=== PATIENT | male | born 1960 | race Caucasian/White ===

== ENCOUNTER 2023-03-03 12:33 | Observation (INO) | payer SELFPAY ==
[2023-03-03] VITALS (16 sets, daily range): BP systolic 110–166; BP diastolic 76–111; PULSE 78–106; RESP 13–22; TEMP 36.4; O2SAT 94–100
--- NOTE | ~2023-03-03 | CT_ITS ---
EXAMINATION: CT brain wo con DATE: 03/03/2023 13:28 INDICATION: Dizziness. Nausea and vomiting. TECHNIQUE: Computed tomography (CT) of the head was performed without intravenous contrast. The mA wa s adjusted according to patient size. Iterative reconstruction technique was employed. Exam dose: 83 2.33 mGy-cm total exam DLP. COMPARISON: 07/30/2018 CT brain FINDINGS: Vertebral, basilar and carotid siphon internal carotid artery calcifications. No intracranial mass lesion or hemorrhage or cerebrovascular accident, midline shift or mass effect i s detected. No subdural or epidural hematoma. Normal ventricular size. No orbital abnormality. No skull fracture or bone destruction. Extensive opacification of right mastoid air cells. There is limited development of the left or right mastoid air cells. The left mastoid air cells are patent. There is prominent mucoperiosteal thickening of the maxillary sinuses, prominent patchy soft tissue t hickening of the ethmoid air cells. IMPRESSION: Cerebral atherosclerosis No acute intracranial finding Paranasal sinus disease Reviewed, dictated and finalized at [facility]. Reviewed, dictated and finalized at location [facility]. 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
--- NOTE | ~2023-03-03 | XR_ITS ---
EXAMINATION: XR chest 2V DATE: 03/03/2023 15:16 INDICATION: Pneumonitis. TECHNIQUE: Frontal and lateral views of the chest were obtained. COMPARISON: Chest 2 views 09/19/2018, chest CT 07/30/2018 FINDINGS: There is no pneumonia, pleural effusion, or pneumothorax. Cardiomegaly is noted. IMPRESSION: 1. Cardiomegaly. Reviewed, dictated and finalized at location [facility]. [facility] IMPRESSION: 1. Cardiomegaly.
[2023-03-03 12:48] LABS: Basophils Absolute Auto 0.1 K/mm3 (0.0-0.1); Basophils Percent Auto 0.4 % (0.2-1.2); Eosinophils Absolute Auto 0.2 K/mm3 (0-0.3); Eosinophils Percent Auto 1.4 % (0-4.4); Hematocrit 39.5 % (42.0-52.0); Hemoglobin 13.2 g/dL (14.0-18.0); Immature Granulocyte Percent A 0.6 % (0-0.5); Lymphocytes Absolute Auto 5.51 K/mm3 (0.9-3.2); Lymphocytes Percent Auto 34.3 % (18.3-44.2); Mean Corpuscular HGB Conc 33.4 g/dl (32-36); Mean Corpuscular Hemoglobin 29.9 pg (26-34); Mean Corpuscular Volume 89.4 fl (80-100); Mean Platelet Volume 9.6 fl (7.4-10.4); Monocytes Absolute Auto 1.3 K/mm3 (0.1-0.6); Monocytes Percent Auto 8.1 % (2.6-8.5); Neutrophils Absolute Auto 8.9 K/mm3 (1.3-6.7); Neutrophils Percent Auto 55.2 % (45.5-73.1); Platelet Count Result 446 k/mm3 (150-375); Red Blood Count 4.42 M/mm3 (4.6-6.20); Red Cell Distribution Width 12.4 % (11.5-14.5); White Blood Count 16.1 K/mm3 (4.5-10.0)
--- NOTE | 2023-03-03 12:59 | ED.GENADULT ---
HPI - General Adult General Chief complaint: Nausea/Vomiting/Diarrhea <Fang Magana June, LOOP TACKER - Last Filed: 03/05/23 20:15> Stated complaint: vomiting <Fang Magana June, LOOP TACKER - Last Filed: 03/05/23 20:15> Time Seen by Provider: 03/03/23 14:23 <Fang Magana June, LOOP TACKER - Last Filed: 03/05/23 20:15> Source: patient and family (daughters) <Minal Berman MD - Last Filed: 03/04/23 02:58> History of Present Illness HPI narrative: Emanuel Granado is a 62 y/o male with PMHx of HTN has been off of his blood pressure medications for about a week. He states he might of felt a little light headed yesterday/ woke up this morning feeling ok and then around 1120 he started to feel nauseated/ diaphoretic / he states vomited up clear fluids/ He states he feels dizzy / off balance / nauseated Denies chest pain / shortness of breath/ denies abdominal pain/ Last BM was today and normal Denies numbness /tingling to his arms/ legs/ <Fang Magana June, LOOP TACKER - Last Filed: 03/05/23 20:15> Emanuel Granado is a 62 y/o male with PMHx of HTN has been off of his blood pressure medications (labetalol 10mg and HCTZ) for about a week. He states he might of felt a little light headed yesterday/ woke up this morning feeling ok and then around 1120 he started to feel nauseated/ diaphoretic / he states vomited up clear fluids/ He states he feels dizzy / off balance / nauseated Denies chest pain / shortness of breath/ denies abdominal pain/ Last BM was today and normal . No diarrhea. Denies numbness /tingling to his arms/ legs/ Emesis non bloody, 5-6 episodes over 1-1.5 hours. Daughter states he was flushed and clammy. He states he as bit by a spider 1 week ago. He didn't see a spider but noticed a rash that burned and itched. No known Hx Afib. Does not follow with a healthcare insurance sales agent, not on anticoagulation. Denies palpitations. He later complains of an earache on the right. Denies sick contact. Previously had a PCP through [facility] but this closed in July. <Minal Breman MD - Last Filed: 03/04/23 02:58> Related Data Home medications: Home Medications Medication Instructions Recorded Confirmed hydrochlorothiazide 25 mg tablet 25 mg PO DAILY 03/03/23 03/03/23 <Fang Magana June, - Last Filed: 03/05/23 20:15> Allergies/adverse reactions: Allergies Allergy/AdvReac Type Severity Reaction Status Date / Time No Known Allergies Allergy Verified 03/03/23 13:41 <Fang Magana June, - Last Filed: 03/05/23 20:15> Review of Systems Review of Systems: All systems reviewed & are unremarkable except as noted in HPI and below <Fang Magana June, - Last Filed: 03/05/23 20:15> PMFSH Past Medical History Medical History: Medical History Hypertension <Fang Magana June, - Last Filed: 03/05/23 20:15> Surgical History Surgical History: Surgical History No history of major surgery within 1 month <Fang Magana June, - Last Filed: 03/05/23 20:15> Family History Family History: Family History Daughter Asthma Mother Diabetes mellitus Hypertension Father Multiple sclerosis <Fang Magana June, - Last Filed: 03/05/23 20:15> Social History Social History: Social History Social History: Has 5 children (age ranges teenager to mid 30 yo). Surrogate medical decision maker: Shweta Granado, daughter. Code status: Full code. 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
--- NOTE | 2023-03-03 13:08 | ECG_ITS ---
Measurements Intervals [place] Rate: 88 P: NC: 0 QRS: 66 QRSD: 108 T: 3 QT: 391 QTc: 475 Interpretive Statements ATRIAL FIBRILLATION NONSPECIFIC ST-T WAVE ABNORMALITY- INFERIOR LEADS ABNORMAL ECG NO PREVIOUS ECG AVAILABLE FOR COMPARISON Electronically Signed On 03-03-2023 14:59:23 LAWN SERVICE MANAGER by Yony Mack D.O.
[2023-03-03 13:12] LABS: Anisocytosis 1+ (NORMAL); Atypical Lymphocytes Present; Platelet Estimate Adequate (Adequate); Schistocytes None Seen (NORMAL)
[2023-03-03 13:53] LABS: Alanine Aminotransferase 39 U/L (6-50); Albumin Level 4.2 g/dL (3.5-5.1); Alkaline Phosphatase 91 U/L (38-126); Anion Gap 9 mmol/L (8-16); Aspartate Amino Transferase 31 U/L (17-59); Bilirubin,Total 0.8 mg/dL (0.2-1.3); Blood Urea Nitrogen 17 mg/dL (9-20); Calcium 9.1 mg/dL (8.4-10.2); Carbon Dioxide 25 mmol/L (22-30); Chloride 100 mmol/L (98-107); Estimated CRCL calculation 85 ml/min; Estimated Glomerular Filt Rate > 60; Glucose 187 mg/dL (65-110); Lipase 169 U/L (23-300); Potassium 3.8 mmol/L (3.4-5.0); Sodium 134 mmol/L (137-145)
[2023-03-03] MEDS: ONDANSETRON INJ 4 MG/2 ML VIAL IV PUSH (14:06)
[2023-03-03] MEDS: FAMOTIDINE 20 MG/2 ML VIAL IV PUSH (14:11)
[2023-03-03 14:13] LABS: Lactic Acid Reflex 1.7 mmol/L (0.7-2.0)
[2023-03-03 14:30] LABS: Troponin I < 0.012 ng/mL (0.000-0.034)
--- NOTE | 2023-03-03 14:48 | ECG_ITS ---
Measurements Intervals [place] Rate: 77 P: DE: 0 QRS: 73 QRSD: 95 T: 23 QT: 397 QTc: 451 Interpretive Statements ATRIAL FIBRILLATION VENTRICULAR PREMATURE COMPLEX BORDERLINE ST-T WAVE ABNORMALITY- INFERIOR LEADS ABNORMAL ECG COMPARED TO ECG 03/03/2023 13:51:28 NO SIGNIFICANT CHANGES Electronically Signed On 03-03-2023 15:15:00 DEICER ELEMENT WINDER MACHINE by Yony Mack D.O.
[2023-03-03] MEDS: SODIUM CHLORIDE 0.9% IV 1,000 ML 999 ML IV CONT (15:05)
[2023-03-03 15:42] LABS: Appearance Urine Clear (Clear); Bilirubin Urine Negative (Negative); Blood Urine Negative (Negative); Color Urine Yellow (Yellow); Glucose Urine UA Negative (Negative); Ketones Urine 1+ mg/dL (Negative); Leukocyte Esterase Ur Negative LEU/UL (Negative); Nitrate Urine Negative (Negative); Protein Urine Negative (Negative); Specific Grav Ur 1.023 (1.001-1.035); Urobilinogen Urine 0.2 mg/dL (<2.0)
[2023-03-03 15:50] LABS: Influenza A QL RT-PCR Negative (Negative); Influenza B QL RT-PCR Negative (Negative); RSV RNA, RT-PCR Negative (Negative); SARS-CoV-2 RNA PCR Negative (Negative)
[2023-03-03 16:03] LABS: Add Urine Microscopic? NO
[2023-03-03] MEDS: PROCHLORPERAZINE EDISYLATE 10 MG/2 ML VIAL IV PUSH (17:15)
[2023-03-03] MEDS: LACTATED RINGERS 1,000 ML 125 ML IV CONT (18:16)
--- NOTE | 2023-03-03 18:50 | PC.NURSE ---
Pt daughter Shweta requests to be called with updates regarding pt. Pt gave verbal permission to share information with Shweta. Shweta White
--- NOTE | 2023-03-03 19:16 | PC.NURSE ---
Report given to Keyla JONES, all questions answered
--- NOTE | 2023-03-03 21:31 | ADMGEN ---
This patient, Emanuel Granado, was admitted to Medical Room 347-. Patient/family oriented to hospital policies and general routines including ID bracelet, bed and alarms, visiting hours, pain management, procedures, bathroom and other care routines, personal items, smoking policy, room service/diet, and visiting hours. Information on how to activate the Rapid Response Team has been discussed. Patient/Family are encouraged to report perceived risks to care and to ask questions if they do not understand what they are told or what they should do.
--- NOTE | 2023-03-03 22:26 | PM.IMHP ---
H&P: HPI History of Present Illness Date/Time: 03/03/23 22:30 Chief Complaint: Nausea, vomiting, rash. Narrative: This is a very pleasant 62-year-old male with hypertension who presented to the emergency department via private vehicle for evaluation of nausea, vomiting, and a rash. The patient provides the following history. He was in his usual state of health when he went to work this morning and around lunchtime he started to feel lightheaded, nauseated, and weak. He had several episodes of emesis thereafter and he was brought in for evaluation as he just did not look well. He had not yet eaten lunch and majority of the emesis was water. He felt better thereafter and has no current complaints. On arrival to the ED he was afebrile blood pressures have been running in the 150s to 160s systolic. Labs were significant for WBC count of 16.1, hemoglobin 13.2 sodium 134, glucose 187, lactic acid 1.7, troponin than 0.012, TSH 1.100. UA was unremarkable aside from 1+ ketones. He tested negative for influenza, RSV, and COVID. Chest x-ray showed cardiomegaly. EKG showed atrial fibrillation with a rate of 88. This is a new diagnosis for him and has no symptoms of palpitations or sensations of racing heart. He also denies exertional chest pain, shortness a breath, lower extremity edema, orthopnea, and paroxysmal nocturnal dyspnea. No history of cardiac or thyroid disease. He denies significant caffeine and alcohol use. No concerns for sleep apnea. Of note, about a week ago he developed what he got what he thought was a spider bite on the left lower back. He then developed several other of lesions in the same area which seemed to follow a dermatome. He has a history of chickenpox though it has never had shingles. The area is now crusted over and is not draining. He has no significant pain in the area. At the time my evaluation he has no complaints. Review of Systems Review of Systems: Twelve systems were reviewed and are negative except for as per HPI. COUNTS INCLUDE 234 BEDS AT THE [facility] Past Medical History Medical History (Updated 03/03/23 @ 23:10 by Kelly Julien PA-C) Hypertension Surgical History Surgical History (Updated 03/03/23 @ 23:10 by Kelly Julien PA-C) No history of major surgery within 1 month Family History Family History Daughter Asthma Mother Diabetes mellitus Hypertension Father Multiple sclerosis Social History Social History (Updated 03/03/23 @ 23:10 by Kelly Julien PA-C) Social History: Surrogate medical decision maker: Shweta Granado, daughter. Code status: Full code. Smoking status: Never smoker Alcohol intake: never Substance use type: marijuana Do You Feel Safe in your Home?: Yes Lack of Transportation: No Lack of Food: Never True Current Housing: I Have Housing Concerned About Future Housing: No Difficulty Paying Gas/Electric Bills: No Difficulty Paying for Meds: No Currently Unemployed: No Education: High School Diploma/GED Difficulty w/ Childcare or Family Care: No Additional living arrangements comments: Lives in [place]. Additional occupation/education comments: [employer]. Spiritual care concerns: No Meds Home Medications and Allergies Home Medications Medication Instructions Recorded Confirmed Type amlodipine 10 mg tablet 10 mg PO DAILY 03/03/23 03/03/23 History hydrochlorothiazide 25 mg tablet 25 mg PO DAILY 03/03/23 03/03/23 History Allergies Allergy/AdvReac Type Severity Reaction Status Date / Time No Known Allergies Allergy Verified 03/03/23 13:41 Vital Signs Vital Signs - 24 hr 03/03/23 12:36 03/03/23 13:45 03/03/23 14:11 Temperature 97.6 F 97.6 F Pulse Rate 86 87 82 Respiratory Rate 20 20 21 H Blood Pressure 159/89 H 157/99 H 138/100 H Pulse Oximetry 100 95 95 Oxygen Delivery 03/03/23 15:08 03/03/23 15:46 03/03/23 16:07 Temperature Pulse Rate 81 106 H 81 Respir
[2023-03-04] VITALS (7 sets, daily range): BP systolic 137–150; BP diastolic 70–97; PULSE 84–112; RESP 18–20; TEMP 36.3–36.4; O2SAT 96–98; BMI 28.7
[2023-03-04 06:25] LABS: Anion Gap 7 mmol/L (8-16); Blood Urea Nitrogen 12 mg/dL (9-20); Calcium 8.6 mg/dL (8.4-10.2); Carbon Dioxide 27 mmol/L (22-30); Chloride 101 mmol/L (98-107); Cholesterol 152 mg/dL (0-200); Estimated CRCL calculation 97 ml/min; Estimated Glomerular Filt Rate > 60; Glucose 107 mg/dL (65-110); HDL Direct 33 mg/dL; Magnesium 1.9 mg/dL (1.6-2.3); Potassium 4.1 mmol/L (3.4-5.0); Sodium 135 mmol/L (137-145); Triglycerides 111 mg/dL (<150)
[2023-03-04 06:32] LABS: Hematocrit 38.5 % (42.0-52.0); Hemoglobin 12.9 g/dL (14.0-18.0); Mean Corpuscular HGB Conc 33.5 g/dl (32-36); Mean Corpuscular Hemoglobin 29.6 pg (26-34); Mean Corpuscular Volume 88.3 fl (80-100); Mean Platelet Volume 9.6 fl (7.4-10.4); Platelet Count Result 355 k/mm3 (150-375); Red Blood Count 4.36 M/mm3 (4.6-6.20); Red Cell Distribution Width 12.2 % (11.5-14.5); White Blood Count 12.6 K/mm3 (4.5-10.0)
[2023-03-04 06:36] LABS: LDL Cholesterol Direct 88 mg/dL
[2023-03-04] MEDS: amLODIPine BESYLATE 5 MG TABLET 10 MG PO (08:53)
[2023-03-04] MEDS: hydroCHLOROthiazide 25 MG TABLET PO (08:54)
--- NOTE | 2023-03-04 10:23 | PC.NURSE ---
RN gave update to Shweta via telephone on patient status.
--- NOTE | 2023-03-04 10:44 | PM.IMPN ---
Subjective Date/time seen: 03/04/23 10:44 Interval history: This is a very pleasant 62-year-old male with hypertension who presented to the emergency department via private vehicle for evaluation of nausea, vomiting, and a rash. The patient provides the following history. He was in his usual state of health when he went to work this morning and around lunchtime he started to feel lightheaded, nauseated, and weak. He had several episodes of emesis thereafter and he was brought in for evaluation as he just did not look well. He had not yet eaten lunch and majority of the emesis was water. He felt better thereafter and has no current complaints. On arrival to the ED he was afebrile blood pressures have been running in the 150s to 160s systolic. Labs were significant for WBC count of 16.1, hemoglobin 13.2 sodium 134, glucose 187, lactic acid 1.7, troponin than 0.012, TSH 1.100. UA was unremarkable aside from 1+ ketones.? He tested negative for influenza, RSV, and COVID. Chest x-ray showed cardiomegaly. EKG showed atrial fibrillation with a rate of 88. This is a new diagnosis for him and has no symptoms of palpitations or sensations of racing heart. He also denies exertional chest pain, shortness a breath, lower extremity edema, orthopnea, and paroxysmal nocturnal dyspnea. No history of cardiac or thyroid disease. He denies significant caffeine and alcohol use. No concerns for sleep apnea. Of note, about a week ago he developed what he got what he thought was a spider bite on the left lower back. He then developed several other of lesions in the same area which seemed to follow a dermatome. He has a history of chickenpox though it has never had shingles. The area is now crusted over and is not draining. He has no significant pain in the area. At the time my evaluation he has no complaints. Interval Hx: 03/04/2023 Review of Systems Review of Systems: Twelve systems were reviewed and are negative except for as per HPI. Objective Data Vital Signs Vital Signs: Vital Signs - 24 hr 03/03/23 12:36 03/03/23 13:45 03/03/23 14:11 Temperature 97.6 F 97.6 F Pulse Rate 86 87 82 Respiratory Rate 20 20 21 H Blood Pressure 159/89 H 157/99 H 138/100 H Pulse Oximetry 100 95 95 Oxygen Delivery 03/03/23 15:08 03/03/23 15:46 03/03/23 16:07 Temperature Pulse Rate 81 106 H 81 Respiratory Rate 18 19 16 Blood Pressure 161/109 H 127/106 H Pulse Oximetry 96 94 98 Oxygen Delivery 03/03/23 16:08 03/03/23 16:15 03/03/23 16:17 Temperature Pulse Rate 81 89 78 Respiratory Rate 16 18 18 Blood Pressure 147/98 H Pulse Oximetry 97 97 99 Oxygen Delivery 03/03/23 16:30 03/03/23 16:32 03/03/23 16:46 Temperature Pulse Rate 81 91 96 Respiratory Rate 17 22 H 19 Blood Pressure 166/111 H 137/88 Pulse Oximetry 98 97 100 Oxygen Delivery 03/03/23 17:21 03/03/23 18:16 03/03/23 18:51 Temperature Pulse Rate 98 104 H 88 Respiratory Rate 13 19 22 H Blood Pressure 149/103 H 137/100 H 110/76 Pulse Oximetry 99 97 100 Oxygen Delivery 03/03/23 20:38 03/03/23 21:37 03/04/23 00:35 Temperature 97.4 F L Pulse Rate 83 100 Respiratory Rate 15 18 Blood Pressure 141/84 H 150/97 H Pulse Oximetry 98 96 Oxygen Delivery Room Air 03/04/23 00:00 03/04/23 04:00 03/04/23 06:00 Temperature 97.6 F Pulse Rate 96 84 106 H Respiratory Rate 20 Blood Pressure 137/70 Pulse Oximetry 98 Oxygen Delivery Intake/Output Intake/Output: Intake & Output 03/01/23 03/02/23 03/03/23 03/04/23 23:59 23:59 23:59 23:59 Intake Total 1000 900 Balance 1000 900 Meds/Results Medications: Active Medications Generic Name Dose Route Start Last Admin Trade Name Freq PRN Reason Stop Dose Admin Acetaminophen 650 mg 03/03/23 17:28 Acetaminophen 325 Mg Tablet PO Q4H PRN Mild Pain (1-3) or Fever Amlodipine Besylate 10 mg 03/04/23 09:00 03/04/23 08:53 Amlodipine Besylate 5 Mg Tablet PO 10 mg D
[2023-03-04] MEDS: METOPROLOL SUCCINATE EXT REL 50 MG TABCR PO (11:34)
[2023-03-04] MEDS: APIXABAN 5 MG TABLET 10 MG PO (11:36)
--- NOTE | 2023-03-04 13:05 | PM.DS ---
DS: Admitting Diagnosis Discharge Date 03/04/2023 Admitting Diagnosis AFib DS: Summary Hospital Course Reason for hospitalization: This is a very pleasant 62-year-old male with hypertension who presented to the emergency department via private vehicle for evaluation of nausea, vomiting, and a rash.? Hospital Course: The patient provides the following history. He was in his usual state of health when he went to work this morning and around lunchtime he started to feel lightheaded, nauseated, and weak. He had several episodes of emesis thereafter and he was brought in for evaluation as he just did not look well. He had not yet eaten lunch and majority of the emesis was water. He felt better thereafter and has no current complaints. On arrival to the ED he was afebrile blood pressures have been running in the 150s to 160s systolic. Labs were significant for WBC count of 16.1, hemoglobin 13.2 sodium 134, glucose 187, lactic acid 1.7, troponin than 0.012, TSH 1.100. UA was unremarkable aside from 1+ ketones.? He tested negative for influenza, RSV, and COVID. Chest x-ray showed cardiomegaly. EKG showed atrial fibrillation with a rate of 88. This is a new diagnosis for him and has no symptoms of palpitations or sensations of racing heart. He also denies exertional chest pain, shortness a breath, lower extremity edema, orthopnea, and paroxysmal nocturnal dyspnea. No history of cardiac or thyroid disease. He denies significant caffeine and alcohol use. No concerns for sleep apnea. Of note, about a week ago he developed what he got what he thought was a spider bite on the left lower back. He then developed several other of lesions in the same area which seemed to follow a dermatome. He has a history of chickenpox though it has never had shingles. The area is now crusted over and is not draining. He has no significant pain in the area. At the time my evaluation he has no complaints. 03/04/2023: Pt seen this am, he denies any overnight events, denies any chest pain, n/v, fever or chills. He requests discharge, citing he will continue to follow up out-pt. cardiology was consulted her is HPI below: New diagnosis for the patient. [id number] is 1 for hypertension. Discussed diagnosis with the patient, treatment/management strategies for atrial fibrillation. Tele shows rate controlled AFIB for the most part, with occasional RVR. Will start Metoprolol 50mg once daily for rate control. Does not need anticoagulation for stroke prophylaxis given [id number] of 1. TSH level normal. Echocardiogram ordered and pending. Okay to discharge home from cardiology standpoint. Will arrange follow up in our office for continued management of his atrial fibrillation. Will need outpatient sleep study.? (2) Hypertension: ?Code(s): I10 - Essential (primary) hypertension ?Status:?Acute ?Assessment and Plan: Stable. Continue HCTZ, Amlodipine. (3) Shingles: ?Code(s): B02.9 - Zoster without complications ?Status:?Acute ?Assessment and Plan: As per primary team. Status at Discharge Functional status at discharge: independent ambulation Time Spent with Patient Time attestation: Total time spent providing and/or coordinating discharge services: Time spent: Less than 30 minutes Exam Narrative: General: A well-developed, nontoxic-appearing male lying on his left side in bed. Weight: 90.9 kg. BMI: 29.6. HEENT: PERRL, EOMI. Sclera anicteric. Tacky mucous membranes. Neck: Supple. Respiratory: Lungs are clear to auscultation bilaterally. Cardiovascular: Irregularly irregular rate and rhythm. Gastrointestinal: Abdomen is soft, nontender, and nondistended with positive bowel sounds. Skin: Warm and dry. No rash or lesions on limited exam. Extremities: No cyanosis, clubbing, or edema. Radial and pedal pulses intact. Neurological: Alert. Cranial nerves 2-12 are grossly intact. No gross focal deficits to casual conversation. 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
--- NOTE | 2023-03-04 13:58 | PM.CNCAR ---
Assessment and Plan Assessment and plan (1) Atrial fibrillation: Qualifiers: Atrial fibrillation type: unspecified Qualified Code(s): I48.91 - Unspecified atrial fibrillation Code(s): I48.91 - Unspecified atrial fibrillation Status: Acute Assessment and Plan: New diagnosis for the patient. [id number] is 1 for hypertension. Discussed diagnosis with the patient, treatment/management strategies for atrial fibrillation. Tele shows rate controlled AFIB for the most part, with occasional RVR. Will start Metoprolol 50mg once daily for rate control. Does not need anticoagulation for stroke prophylaxis given [id number] of 1. TSH level normal. Echocardiogram ordered and pending. Okay to discharge home from cardiology standpoint. Will arrange follow up in our office for continued management of his atrial fibrillation. Will need outpatient sleep study. (2) Hypertension: Code(s): I10 - Essential (primary) hypertension Status: Acute Assessment and Plan: Stable. Continue HCTZ, Amlodipine. (3) Shingles: Code(s): B02.9 - Zoster without complications Status: Acute Assessment and Plan: As per primary team. History of Present Illness History of Present Illness Consult date/time: 03/04/23 13:58 Requesting physician: Minal Berman MD Consult reason: atrial fibrillation Reason For Visit: AFIB,Shingles,Vomiting Narrative: We are consulted for atrial fibrillation. This is a 62 year old male with hypertension who presented for evaluation of nausea, vomiting, and a rash. He is being treated for shingles. EKG on admission showed rate controlled atrial fibrillation, which is a new diagnosis for him. Patient denies any prior cardiac history. No chest pain. Otherwise, he is feeling well now. Patient is eager to go home today. Review of Systems Review of Systems: All systems reviewed & are unremarkable except as noted in HPI and below (HPI) [facility] Past Medical History Medical History Hypertension Surgical History Surgical History No history of major surgery within 1 month Family History Family History Daughter Asthma Mother Diabetes mellitus Hypertension Father Multiple sclerosis Social History Social History Social History: Has 5 children (age ranges teenager to mid 30 yo). Surrogate medical decision maker: Shweta Granado, daughter. Code status: Full code. Smoking status: Never smoker Alcohol intake: current Substance use type: marijuana Do You Feel Safe in your Home?: Yes Lack of Transportation: No Lack of Food: Never True Current Housing: I Have Housing Concerned About Future Housing: No Difficulty Paying Gas/Electric Bills: No Difficulty Paying for Meds: No Currently Unemployed: No Education: High School Diploma/GED Difficulty w/ Childcare or Family Care: No Living arrangements: alone Additional living arrangements comments: Lives in [place]. Additional occupation/education comments: [employer]. Spiritual care concerns: No Meds Home Medications and Allergies Home Medications Medication Instructions Recorded Confirmed Type amlodipine 10 mg tablet 10 mg PO DAILY 03/03/23 03/03/23 History hydrochlorothiazide 25 mg tablet 25 mg PO DAILY 03/03/23 03/03/23 History Allergies Allergy/AdvReac Type Severity Reaction Status Date / Time No Known Allergies Allergy Verified 03/03/23 13:41 Vital Signs Vital Signs - 24 hr 03/03/23 14:11 03/03/23 15:08 03/03/23 15:46 Temperature Pulse Rate 82 81 106 H Respiratory Rate 21 H 18 19 Blood Pressure 138/100 H 161/109 H Pulse Oximetry 95 96 94 Oxygen Delivery 03/03/23 16:07 03/03/23 16:08 03/03/23 16:15 Temperature Pulse Rate 81 8
--- NOTE | 2023-03-04 23:04 | ECHO_ITS ---
Patient Info Name: Emanuel Granado Age: 62 years : 1960 Gender: Male Ht: 69 in Wt: 200 lbs BSA: 2.12 m2 HR: 78 bpm BP: 150 / 97 mmHg Heart Rhythm: Atrial Fibrillation Technical Quality: Good Exam Date: 03/04/2023 10:55 AM Exam Location: Echo Lab Patient Status: Outpatient Admit Date: 03/03/2023 Staff Ordering Physician: Kelly Julien PA-C Clinical Support Manager: Raghavendra Mulligan RDCS Attending Provider: Annabel López MD Referring Physician: Anaya THOMPSON; Exam Type: CA echo doppler color flow Study Info Indications - A-FIB, HTN Complete two-dimensional, color flow and Doppler transthoracic echocardiogram is performed. Summary 1. Complete two-dimensional, color flow and Doppler transthoracic echocardiogram is performed. 2. Left ventricular chamber dimension is normal. 3. Left ventricular systolic function is normal, estimated at 60-65%. 4. There is mildly increased left ventricular wall thickness. 5. Right ventricular systolic function is normal. 6. Left atrial chamber dimension is mildly enlarged. 7. Right atrial chamber dimension is mildly enlarged. 8. There is mild tricuspid valve regurgitation. Left Ventricle Left ventricular chamber dimension is normal. Left ventricular systolic function is normal, estimated at 60-65%. There is mildly increased left ventricular wall thickness. Right Ventricle Right ventricular chamber dimension is normal. Right ventricular systolic function is normal. Left Atria Left atrial chamber dimension is mildly enlarged. Right Atria Right atrial chamber dimension is mildly enlarged. Atrial Septum Intact interatrial septum visualized by color flow imaging. Aortic Valve The aortic valve is probable trileaflet. There is no aortic valve stenosis. There is trace aortic valve regurgitation. Pulmonic Valve The pulmonic valve is not well visualized. There is trace pulmonic regurgitation. Mitral Valve There is trace mitral valve regurgitation. Tricuspid Valve There is mild tricuspid valve regurgitation. Pericardium/Pleural The pericardium appears normal. Inferior Vena Cava Normal inferior vena cava with >50% collapse upon inspiration consistent with normal right atrial pressure, 3 mmHg. Aorta The aortic root size at the sinus of Valsalva is normal. Left Ventricular Outflow Tract Name Value Normal LVOT Doppler LVOT Peak Gradient 5 mmHg LVOT Mean Gradient 2 mmHg LVOT VTI 18 cm LVOT VTI/AV VTI Ratio 0.8 Pulmonic Valve Name Value Normal RVOT Doppler RVOT Peak Gradient 2 mmHg PV Doppler PV Peak Gradient 3 mmHg Mitral Valve Name Value Normal MV Doppler
== END 2023-03-04 16:06 | disposition home or self-care (01) ==
LOC: ANHED 19:51 → ANH3MED 21:14
PROVIDERS: Nurse Practitioner Family; Physician Assistant; Admitting Provider General Practice; Emergency Provider Student in an Organized Health Care Education/Training Program; PCP Internal Medicine; Visit Provider Nurse Practitioner
DX: I48.91 Unspecified atrial fibrillation (principal); B02.9 Zoster without complications; I10 Essential (primary) hypertension; R73.9 Hyperglycemia, unspecified; I67.2 Cerebral atherosclerosis; Z20.822 Contact with and (suspected) exposure to COVID-19; R94.31 Abnormal electrocardiogram [ECG] [EKG]; I07.1 Rheumatic tricuspid insufficiency; F10.90 Alcohol use, unspecified, uncomplicated; F12.90 Cannabis use, unspecified, uncomplicated; Z82.49 Family history of ischemic heart disease and other diseases of the circulatory system; D72.829 Elevated white blood cell count, unspecified; Z79.899 Other long term (current) drug therapy
CPT/HCPCS: 36415; 70450; 71046; 80048; 80053; 80061; 81003; 83605; 83690; 83735; 84443; 84484; 85025; 85027; 87637; 93005; 93306; 96360; 96361; 96374; 96375; 99285; A9270; G0378; J0780; J2405; J7030; J7120